=== PATIENT | female | born 1985 | race Caucasian/White ===

== ENCOUNTER 2017-08-01 09:18 | Inpatient (IN) | payer MEDICAID ==
[~2017-08-01] VITALS: Ht 165.1 cm; Wt 88.5 kg
[~2017-08-01 09:18] MED LIST: Z.0.NO CURRENT MEDS
[2017-08-01] MEDS ORDERED: FLINT2 CHEW (09:43)
[2017-08-01] MEDS ORDERED: LACTATED RINGER'S 1000 ML INJ 1,000 ML IV ONE (09:45)
--- NOTE | 2017-08-01 09:47 | HHI.HP ---
HPI Chief Complaint scheduled section. Date Seen: August 01, 2017 Time Seen: 09:54 Travel History International Travel<30 Days: No Contact w/Intl Traveler<30Days: No History of Present Illness HPI 31-year-old female at 39 weeks gestation presents to OB triage for scheduled section. She was seen in June for consultation. She denies any change in her medical history or care since that visit. Patient reports that she last ate at 11 PM last night. Denies any loss of fluid, vaginal bleeding or contractions. Patient endorses movement. Denies any chest pain, shortness of breath, fever, chills, nausea or vomiting. Weeks Gestation: 39 Para: 1 : 3 Miscarriage: 1 History Past Medical History Narrative Medical Obesity Obstetric History Obstetric History One ending in term cesarian delivery secondary to arrest of dilation One miscarriage No complications this thus far Past Surgical History Narrative Surgical Previous x1 Tonsillectomy and adenoidectomy at 5 years of age Family History Narrative Family History Father: leukemia PGF: Pancreatic cancer PGM: Breast cancer Social History Alcohol Use: No Tobacco Use: No Substance Abuse: No Allergies-Medications (Allergen,Severity, Reaction): Coded Allergies: Sulfa (Sulfonamide Antibiotics) (Unverified Allergy, Severe, N/V/ DIZZINESS, 08/01/17) Home Meds Reported Medications Miir-Sjyoiqig-Hlyrujhm (Flintstones Complete) 60 Mg Tab, 1 TAB CHEW DAILY for Nutritional Supplement, #30 TAB 0 Refills 08/01/17 Discontinued Reported Medications Miscellaneous (No Current Meds) [facility] [place] Review of Systems Except as stated in HPI: all other systems reviewed are Neg (per HPI) Physical Exam Narrative GENERAL: Well-nourished, well-developed patient. SKIN: Warm and dry. HEAD: Normocephalic and atraumatic. EYES: No scleral icterus. No injection or drainage. ENT: No nasal drainage noted. Mucous membranes pink. Airway patent. NECK: Supple, trachea midline. No JVD. CARDIOVASCULAR: Regular rate and rhythm without murmurs, gallops, or rubs. RESPIRATORY: Breath sounds equal bilaterally. No accessory muscle use. ABDOMEN/GI: Abdomen soft, non-tender, bowel sounds present, no rebound, no guarding Gravid to 39 weeks size GENITOURINARY: Membranes: intact Uterine Contractions: none FHT's: Category: 1 Baseline: 140 Reactive: yes Variability: moderate Decels: none EXTREMITIES: No cyanosis or edema. BACK: Nontender without obvious deformity. No CVA tenderness. NEUROLOGICAL: Awake and alert. Motor and sensory grossly within normal limits. Five out of 5 muscle strength in all muscle groups. Normal speech. Caprini VTE Risk Assessment Caprini VTE Risk Assessment: No/Low Risk (score <= 1) Caprini Risk Assessment Model Point Value = 1 Point Value = 2 Point Value = 3 Point Value = 5 Age 41-60 Minor surgery BMI > 25 kg/m2 Swollen legs Varicose veins or History of unexplained or recurrent spontaneous Oral contraceptives or hormone replacement Sepsis (< 1 month) Serious lung disease, including pneumonia (< 1 month) Abnormal pulmonary function Acute myocardial infarction Congestive heart failure (< 1 month) History of inflammatory bowel disease Medical patient at bed rest Age 61-74 Arthroscopic surgery Major open surgery (> 45 min) Laparoscopic surgery (> 45 min) Malignancy Confined to bed (> 72 hours) Immobilizing plaster cast Central venous access Age >= 75 History of VTE Family history of VTE Factor V Leiden Prothrombin [id number] Lupus anticoagulant Anticardiolipin antibodies Elevated serum homocysteine Heparin-induced thrombocytopenia Other congenital or acquired thrombophilia Stroke (< 1 month) Elective arthroplasty Hip, pelvis, or leg fracture Acute spinal cord injury (< 1 month) Prophylaxis Regimen Total Risk Factor Score Risk Level Prophylaxis Regimen 0-1 Low Early ambulation 2 Moderate Order ONE of the following: *Sequential Compression Device (SCD) *Heparin 5000 units SQ BID 3-4 Higher Order ONE of the following medications: *Heparin 5000 units SQ TID *Enoxaparin/Lovenox 40 mg SQ daily (WT < 150 kg, CrCl > 30 mL/min) *Enoxaparin/Lovenox 30 mg SQ daily (WT < 150 kg, CrCl > 10-29 mL/min) *Enoxaparin/Lovenox 30 mg SQ BID (WT < 150 kg, CrCl > 30 mL/min) AND/OR *Sequential Compression Device (SCD) 5 or more Highest Order ONE of the following medications: *Heparin 5000 units SQ TID (Preferred with Epidurals) *Enoxaparin/Lovenox 40 mg SQ daily (WT < 150 kg, CrCl > 30 mL/min) *Enoxaparin/Lovenox 30 mg SQ daily (WT < 150 kg, CrCl > 10-29 mL/min) *Enoxaparin/Lovenox 30 mg SQ BID (WT < 150 kg, CrCl > 30 mL/min) AND *Sequential Compression Device (SCD) Data Data Vital Signs Reviewed: Yes Orders Orders Admit To Inpatient (08/01/17 ) Code Status (08/01/17 09:36) Vital Signs (Adult) .ON ADMISSION (08/01/17 09:36) Activity Oob Ad Faye (08/01/17 09:36) Heart (08/01/17 09:36) Urinary Catheter Management NBA.Q8H (08/01/17 09:36) ^ Preps (08/01/17 09:36) Scd / Ky / Foot Pump NBA.QSHIFT (08/01/17 09:36) ^ Ultrasound For Locatio (08/01/17 09:36) Diet Npo (08/01/17 Breakfast) Lactated Ringer's 1000 Ml Inj (Lr 1000 M (08/01/17 09:45) Lactated Ringer's 1000 Ml Inj (Lr 1000 M (08/01/17 10:00) Cefazolin 2 Gm Premix (Ancef 2 Gm Premix (08/01/17 10:45) Citric Acid-Sodium Citrate Liq (Bicitra (08/01/17 11:15) Type And Screen (08/01/17 09:36) Complete Blood Count With Diff (08/01/17 09:36) Urinalysis - C+S If Indicated (08/01/17 09:36) Drug Screen, Random Urine (08/01/17 09:36) Inpatient Certification (08/01/17 ) Specimen To Be Collected PRN (08/01/17 09:36) Specimen To Be Collected PRN (08/01/17 09:36) Assessment/Plan Problem List: (1) 39 weeks gestation of ICD Codes: Z3A.39 - 39 weeks gestation of Plan: 31-year-old female at 39 weeks gestation presents to OB triage for scheduled section. IUP at 39 weeks gestation 1. Continue to monitor vital signs 2. Admit pt to labor and delivery for . 3. Follow-up preop labs 4. Category 1, NST reassuring Dw OB hospitalist Tonia Brady MD, R1 August 01, 2017 09:47
[2017-08-01] MEDS ORDERED: LACTATED RINGER'S 1000 ML INJ 1,000 ML IV SCH ×2 (10:00→17:16)
[2017-08-01 10:01] LABS: AUTOMATED NEUTROPHIL # 8.5 TH/MM3 (1.8-7.7); BASOPHIL % 0.4 % (0.0-2.0); EOSINOPHIL % 0.4 % (0.0-4.0); HEMATOCRIT 39.3 % (35.0-46.0); HEMOGLOBIN 13.2 GM/DL (11.6-15.3); LYMPH % 17.7 % (9.0-44.0); MEAN CELL VOLUME 88.1 FL (80.0-100.0); MEAN CORPUSCULAR HEMOGLOBIN 29.7 PG (27.0-34.0); MEAN CORPUSCULAR HGB CONC 33.7 % (32.0-36.0); MEAN PLATELET VOLUME 8.5 FL (7.0-11.0); MONO % 4.9 % (0.0-8.0); MONOCYTE # 0.5 TH/MM3 (0-0.9); NEUT % 76.6 % (16.0-70.0); PLATELET COUNT 206 TH/MM3 (150-450); RED BLOOD COUNT 4.46 MIL/MM3 (4.00-5.30); RED CELL DISTRIBUTION WIDTH 13.8 % (11.6-17.2)
[2017-08-01 10:03] LABS: BACTERIA, URINE OCC /hpf; BILIRUBIN, URINE NEG (NEG); BLOOD, URINE NEG (NEG); GLUCOSE,URINE NEG (NEG); KETONE, URINE NEG (NEG); MUCUS URINE MOD /lpf (OCC); NITRITE,URINE NEG (NEG); PH, URINE 6.5 (5.0-8.5); SQUAMOUS EPITHELIAL CELL URINE 2 /hpf (0-5); URINE COLOR YELLOW (YELLW/STRAW); URINE LEUKOCYTE ESTERASE NEG (NEG)
[2017-08-01] MEDS ORDERED: MORPHINE SULFATE PF 5 MG/10 ML VIAL ONE (10:24)
[2017-08-01] MEDS ORDERED: METOCLOPRAMIDE HCL 10 MG/2 ML VIAL ONE (10:24)
[2017-08-01] MEDS ORDERED: ACETAMINOPHEN 1000 MG/100 ML 100 ML IV ONE (10:24)
[2017-08-01] MEDS ORDERED: ceFAZolin 2 GM PREMIX 50 ML IV SCH (10:45)
[2017-08-01] MEDS ORDERED: CITRIC ACID-SODIUM CITRATE LIQ 30 ML UDC PO SCH (11:15)
[2017-08-01] MEDS ORDERED: ONDANSETRON HCL 4 MG/2 ML VIAL IV ONE (12:00)
[2017-08-01] MEDS ORDERED: PHENYLEPH/NS 1000 MCG/10 ML SYR IV ONE (12:00)
[2017-08-01] MEDS ORDERED: NORMOSOL R INJ 2,000 ML IV ONE (12:00)
[2017-08-01] MEDS ORDERED: ePHEDrine/NS 25 MG/5 ML SYRINGE IV ONE (12:00)
[2017-08-01] MEDS ORDERED: OXYTOCIN 10 UNIT/ML AMP IV ONE (12:00)
[2017-08-01] MEDS ORDERED: DEXAMETHASONE SOD PHOS 4 MG/ML VIAL IV ONE (12:00)
--- NOTE | 2017-08-01 12:23 | PD.OB.DELI ---
Procedure Note Section Procedure Pre Op Diagnosis: (1) History of delivery affecting (2) 39 weeks gestation of Post Op Diagnosis: (1) 39 weeks gestation of (2) History of delivery affecting Performed by Ryan Christopher Procedure: Repeat Low Transverse Sec Indication for delivery: Desired elective repeat Previous condition: Other Informed consent obtained: For procedure Confirmed correct: Patient, Time-out taken Anesthesia: Spinal Medication prior to procedure: As documented in eMAR Monitoring during procedure: Blood pressure monitoring, nurse monitoring, Pulse oximetry Urinary catheter: Inserted using sterile technique Sterile preparation: Duraprep, In usual fashion Position: Supine with wedge to left side Operative Features Skin Incision: Transverse Uterine Incision: Low transverse w/knife / scissors Membranes Ruptured: Artificially Presentation: Occiput anterior Delivery date: August 01, 2017 Delivery time: 11:27 Delivery of : Other : Male One Minute : 7 Five Minute : 8 Weight: 3760 Status of : Viable Placenta delivered: Intact Medications: Antibiotics, Oxytocin Estimated blood loss: 1200 Procedure tolerated: Well Maternal Complications: Excessive bleeding Maternal Condition: Stable Condition: Stable Procedure in detail see dictated op report Ryan Christopher Jr., MD August 01, 2017 12:23
[2017-08-01] MEDS ORDERED: ONDANSETRON ODT 4 MG TAB PO PRN (12:30)
[2017-08-01] MEDS ORDERED: DOCUSATE SODIUM 50 MG/SENNA 8.6 MG TAB PO PRN (12:30)
[2017-08-01] MEDS ORDERED: ACETAMINOPHEN 325 MG TAB PO PRN (12:30)
[2017-08-01] MEDS ORDERED: OXYTOCIN 30 UNITS-500ML PREMIX 500 ML IV ONE (12:30)
[2017-08-01] MEDS ORDERED: oxyCODONE/ACETAMINOPHEN 5 MG/325 MG TAB PO PRN ×2 (12:30)
[2017-08-01] MEDS ORDERED: SODIUM CHLORIDE 0.9% FLUSH 10 ML FLUSH IV FLUSH PRN (12:30)
[2017-08-01] MEDS ORDERED: ceFAZolin 2 GM PREMIX 50 ML IV ONE (12:30)
[2017-08-01 12:48] LABS: AUTOMATED NEUTROPHIL # 17.7 TH/MM3 (1.8-7.7); BASOPHIL % 0.1 % (0.0-2.0); EOSINOPHIL % 0.1 % (0.0-4.0); HEMOGLOBIN 10.9 GM/DL (11.6-15.3); LYMPH % 6.7 % (9.0-44.0); LYMPHOCYTE # 1.3 TH/MM3 (1.0-4.8); MEAN CELL VOLUME 87.4 FL (80.0-100.0); MEAN CORPUSCULAR HGB CONC 33.2 % (32.0-36.0); MEAN PLATELET VOLUME 8.5 FL (7.0-11.0); MONO % 1.9 % (0.0-8.0); MONOCYTE # 0.4 TH/MM3 (0-0.9); NEUT % 91.2 % (16.0-70.0); PLATELET COUNT 202 TH/MM3 (150-450); RED BLOOD COUNT 3.78 MIL/MM3 (4.00-5.30); RED CELL DISTRIBUTION WIDTH 13.8 % (11.6-17.2); WHITE BLOOD COUNT 19.4 TH/MM3 (4.0-11.0)
[2017-08-01] MEDS ORDERED: OXYTOCIN 30 UNITS-500ML PREMIX 500 ML ONE (13:14)
[2017-08-01] MEDS ORDERED: ceFAZolin 2 GM PREMIX 50 ML ONE (13:14)
[2017-08-01] MEDS ORDERED: OXYTOCIN 30 UNITS-500ML PREMIX 500 ML IV PRN (17:30)
[2017-08-01] MEDS ORDERED: SIMETHICONE 80 MG CHEWABLE TAB PO PRN (20:00)
[2017-08-01] MEDS ORDERED: ZOLPIDEM TARTRATE 5 MG TAB PO PRN (21:00)
[2017-08-01] MEDS ORDERED: SODIUM CHLORIDE 0.9% FLUSH 10 ML FLUSH IV FLUSH SCH (21:00)
[2017-08-02] MEDS: IBUPROFEN 600 MG TAB PO PRN ×3 (05:22→19:13)
[2017-08-02 06:18] LABS: AUTOMATED NEUTROPHIL # 12.3 TH/MM3 (1.8-7.7); BASOPHIL % 0.3 % (0.0-2.0); EOSINOPHIL % 0.1 % (0.0-4.0); HEMATOCRIT 27.8 % (35.0-46.0); HEMOGLOBIN 9.5 GM/DL (11.6-15.3); LYMPH % 14.1 % (9.0-44.0); LYMPHOCYTE # 2.2 TH/MM3 (1.0-4.8); MEAN CELL VOLUME 87.7 FL (80.0-100.0); MEAN CORPUSCULAR HGB CONC 34.2 % (32.0-36.0); MEAN PLATELET VOLUME 8.2 FL (7.0-11.0); MONO % 5.6 % (0.0-8.0); MONOCYTE # 0.9 TH/MM3 (0-0.9); NEUT % 79.9 % (16.0-70.0); PLATELET COUNT 176 TH/MM3 (150-450); RED BLOOD COUNT 3.17 MIL/MM3 (4.00-5.30); RED CELL DISTRIBUTION WIDTH 13.5 % (11.6-17.2); WHITE BLOOD COUNT 15.3 TH/MM3 (4.0-11.0)
--- NOTE | 2017-08-02 08:57 | HHI.OB ---
Subjective Remarks 31 year old female s/p repeat C/S at 39 wks gestation, POD 1. AFVSS. Patient reports she is feeling well. Bleeding is decreasing and pain is well- controlled. She is breast feeding and bonding well with baby. Ambulating without difficulties. She is tolerating a diet without nausea or vomiting. She has not had a bowel movement. She has passed gas. Denies chest pain, dysuria, shortness of breath, or calf pain. Objective Result Diagram: 08/02/17 0603 Objective Remarks GENERAL: Well-nourished, well-developed patient. CARDIOVASCULAR: Regular rate and rhythm without murmurs, gallops, or rubs. RESPIRATORY: Breath sounds equal bilaterally. No accessory muscle use. ABDOMEN/GI: Abdomen soft, non-tender, bowel sounds present. Incision: Clean, dry and intact with scarlett Fundus: Firm, non-tender at 1 cm below umbilicus. GENITOURINARY: Light to moderate bleeding. EXTREMITIES: No cyanosis or edema, non-tender, without signs of DVT. Medications and IVs Current Medications Medications (Trade) Dose Ordered Sig/Priscila Route Start Time Stop Time Status Last Admin Lactated Ringer's 1,000 ml @ 150 mls/hr Q6H40M IV 08/01/17 10:00 08/01/17 10:14 Cefazolin Sodium/ Dextrose 50 ml @ 100 mls/hr WOOD DRILL OPERATOR IV 08/01/17 10:45 08/05/17 10:44 08/01/17 10:14 (Bicitra Liq) 30 ml WOOD DRILL OPERATOR PO 08/01/17 11:15 08/05/17 11:14 08/01/17 10:15 Lactated Ringer's 1,000 ml @ 100 mls/hr Q10H IV 08/01/17 17:16 08/02/17 13:15 Oxytocin 500 ml @ 100 mls/hr UNSCH X1 PRN IV 08/01/17 17:30 08/02/17 17:29 (NS Flush) 2 ml BID IV FLUSH 08/01/17 21:00 (NS Flush) 2 ml UNSCH PRN IV FLUSH 08/01/17 12:30 (Tylenol) 650 mg Q6H PRN PO 08/01/17 12:30 (Motrin) 600 mg Q6H PRN PO 08/01/17 12:30 08/02/17 05:22 (Percocet 5-325 Mg) 1 tab Q4H PRN PO 08/01/17 12:30 (Percocet 5-325 Mg) 2 tab Q4H PRN PO 08/01/17 12:30 (Tess-Colace) 2 tab Q12H PRN PO 08/01/17 12:30 (Ambien) 5 mg HS PRN PO 08/01/17 21:00 (M-M-R Ii Inj) 0.5 ml ONCE ONCE SQ 08/02/17 16:00 08/02/17 16:01 (Boostrix Inj) 0.5 ml ONCE ONCE IM 08/02/17 16:00 08/02/17 16:01 (Zofran Odt) 4 mg Q6H PRN PO 08/01/17 12:30 (Mylicon Chew) 80 mg QID PRN PO 08/01/17 20:00 Assessment/Plan Problem List: (1) 39 weeks gestation of ICD Codes: Z3A.39 - 39 weeks gestation of Plan: 31-year-old female at 39 weeks gestation presents to OB triage for scheduled section. IUP at 39 weeks gestation 1. Continue to monitor vital signs 2. Admit pt to labor and delivery for . 3. Follow-up preop labs 4. Category 1, NST reassuring Dw OB hospitalist (2) delivery, delivered, current hospitalization ICD Codes: O82 - Encounter for delivery without indication Assessment and Plan 31 yo female s/p repeat C/S, POD 1 - AFVSS - Continue routine care - Motrin and Percocet PRN pain - Encourage OOB - Pelvic rest x 6 wks. Will need 1 week incision check. - Contraception: TBD - Anticipate D/C 08/03 or 08/04 Srini Celeste MD R2 August 02, 2017 08:57
[2017-08-02] MEDS ORDERED: MEASLES, MUMPS, RUBELLA VACCINE 0.5 ML VIAL SQ ONE (16:00)
[2017-08-02] MEDS ORDERED: DIPHTH/TETANUS/ACEL PERTUSSIS (BOOSTER) 0.5 ML VIAL/PFS IM ONE (16:00)
[2017-08-02 19:48] VITALS: BP 115/77; PULSE 89; RESP 16; TEMP 98; O2SAT 100
[2017-08-03] MEDS: IBUPROFEN 600 MG TAB PO PRN ×2 (01:16→07:28)
[2017-08-03] MEDS ORDERED: IBUP-232 PO (07:57)
--- NOTE | 2017-08-03 07:58 | HHI.DCPOC ---
Discharge Care Plan Diagnosis: (1) delivery, delivered, current hospitalization Report Symptoms to Your Doctor -Temperature above 100.5 degrees -Redness, of incision or excessive or foul smelling drainage -Unusual pain or calf pain -Increased vaginal bleeding -Painful or difficulty urinating -Feelings of extreme sadness or anxiety after 2 weeks Goals to Promote Your Health * To prevent worsening of your condition and complications * To maintain your health at the optimal level Directions to Meet Your Goals Take your medications as prescribed Follow your dietary instruction Follow activity as directed Ensure plenty of rest for recovery Drink fluids for hydration Keep your appointments as scheduled Take your immunizations and boosters as scheduled If your symptoms worsen call your PCP, if no PCP go to Urgent Care Center or Emergency Room Smoking is Dangerous to Your Health. Avoid second hand smoke Call the 24-hour crisis hotline for domestic abuse at Srini Celeste MD R2 August 03, 2017 07:58
[2017-08-03] MEDS ORDERED: OXYC1TAB63 PO (08:34)
[2017-08-03] MEDS ORDERED: Simethicone Chew PO (08:37)
--- NOTE | 2017-08-03 09:21 | HHI.OB ---
Subjective Remarks 31 year old female s/p repeat C/S at 39 wks gestation, POD 2. AFVSS. Patient reports she is feeling well. Bleeding is decreasing and pain is well- controlled. She is breast feeding and bonding well with baby (baby in NICU). Ambulating without difficulties. She is tolerating a diet without nausea or vomiting. Denies chest pain, dysuria, shortness of breath, or calf pain. Objective Vitals/I&O Vital Signs Date Time Temp Pulse Resp B/P (MAP) Pulse Ox O2 Delivery O2 Flow Rate FiO2 08/02/17 19:48 98.0 89 16 115/77 100 Result Diagram: 08/02/17 0603 Objective Remarks GENERAL: Well-nourished, well-developed patient. CARDIOVASCULAR: Regular rate and rhythm without murmurs, gallops, or rubs. RESPIRATORY: Breath sounds equal bilaterally. No accessory muscle use. ABDOMEN/GI: Abdomen soft, non-tender, bowel sounds present. Incision: Clean, dry and intact with scarlett Fundus: Firm, non-tender at 2-3 cm below umbilicus. GENITOURINARY: Light to moderate bleeding. EXTREMITIES: No cyanosis or edema, non-tender, without signs of DVT. Medications and IVs Current Medications Medications (Trade) Dose Ordered Sig/Priscila Route Start Time Stop Time Status Last Admin Lactated Ringer's 1,000 ml @ 150 mls/hr Q6H40M IV 08/01/17 10:00 08/01/17 10:14 Cefazolin Sodium/ Dextrose 50 ml @ 100 mls/hr SMASHER IV 08/01/17 10:45 08/05/17 10:44 08/01/17 10:14 (Bicitra Liq) 30 ml SMASHER PO 08/01/17 11:15 08/05/17 11:14 08/01/17 10:15 (NS Flush) 2 ml BID IV FLUSH 08/01/17 21:00 (NS Flush) 2 ml UNSCH PRN IV FLUSH 08/01/17 12:30 (Tylenol) 650 mg Q6H PRN PO 08/01/17 12:30 (Motrin) 600 mg Q6H PRN PO 08/01/17 12:30 08/03/17 07:28 (Percocet 5-325 Mg) 1 tab Q4H PRN PO 08/01/17 12:30 (Percocet 5-325 Mg) 2 tab Q4H PRN PO 08/01/17 12:30 (Tess-Colace) 2 tab Q12H PRN PO 08/01/17 12:30 08/03/17 01:15 (Ambien) 5 mg HS PRN PO 08/01/17 21:00 (Zofran Odt) 4 mg Q6H PRN PO 08/01/17 12:30 (Mylicon Chew) 80 mg QID PRN PO 08/01/17 20:00 08/03/17 07:32 Assessment/Plan Problem List: (1) 39 weeks gestation of ICD Codes: Z3A.39 - 39 weeks gestation of Plan: 31-year-old female at 39 weeks gestation presents to OB triage for scheduled section. IUP at 39 weeks gestation 1. Continue to monitor vital signs 2. Admit pt to labor and delivery for . 3. Follow-up preop labs 4. Category 1, NST reassuring Dw OB hospitalist (2) delivery, delivered, current hospitalization ICD Codes: O82 - Encounter for delivery without indication Assessment and Plan 31 yo female s/p repeat C/S, POD 2 - AFVSS - Continue routine care - Motrin and Percocet PRN pain - Encourage OOB - Pelvic rest x 6 wks. Will need 1 week incision check. 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 - Home today Srini Celeste MD R2 August 03, 2017 09:21
[2017-08-03 10:03] LABS: HEMATOCRIT 27.8 % (35.0-46.0); HEMOGLOBIN 9.3 GM/DL (11.6-15.3); MEAN CORPUSCULAR HEMOGLOBIN 29.6 PG (27.0-34.0); MEAN CORPUSCULAR HGB CONC 33.7 % (32.0-36.0); MEAN PLATELET VOLUME 8.3 FL (7.0-11.0); PLATELET COUNT 193 TH/MM3 (150-450); RED BLOOD COUNT 3.16 MIL/MM3 (4.00-5.30); RED CELL DISTRIBUTION WIDTH 13.6 % (11.6-17.2); WHITE BLOOD COUNT 12.1 TH/MM3 (4.0-11.0)
== END 2017-08-03 12:47 | disposition home or self-care (01) | DRG 766 ==
LOC: H2EB 09:18 → H1EA 14:07
PROVIDERS: ADMIT Obstetrics & Gynecology; ATTEND Obstetrics & Gynecology
PROC: 10D00Z1 Extraction of Products of Conception, Low, Open Approach (ICD-10-PCS; principal; 2017-08-01)
DX: O34.211 Maternal care for low transverse scar from previous cesarean delivery (principal); O99.214 Obesity complicating childbirth; O67.8 Other intrapartum hemorrhage; Z37.0 Single live birth; Z3A.39 39 weeks gestation of pregnancy; Z88.2 Allergy status to sulfonamides
CPT/HCPCS: 59025; 80074; 80307; 81001; 85025; 85027; 85461; 86592; 86850; 86900; 86901; 87389; 88305; 90384; C1765; G0475; J0131; J0690; J1100; J2274; J2370; J2405; J2590; J2765; J2790; J3010; J7120